=== PATIENT | male | born 1940 | race Caucasian/White ===

== ENCOUNTER 2021-11-01 01:05 | Emergency (ER) | payer MEDICARE, OTHER ==
[~2021-11-01] VITALS: Ht 182.9 cm; Wt 98.4 kg
[2021-11-01] MEDS ORDERED: IOPAMIDOL 370 MG/ML 100 ML INFUS..BTL INJ ONE (02:27)
[2021-11-01] MEDS ORDERED: SODIUM CHLORIDE 0.9% 1000ML 1,000 ML IV SCH (02:45)
[2021-11-01] MEDS ORDERED: SODIUM CHLORIDE 0.9% 1000ML 1,000 ML ONE (03:03)
== END 2021-11-01 05:50 | disposition other institution (70) ==
LOC: FSED 01:20
DX: R06.02 Shortness of breath (principal); I10 Essential (primary) hypertension; D64.9 Anemia, unspecified; I25.10 Atherosclerotic heart disease of native coronary artery without angina pectoris; E78.5 Hyperlipidemia, unspecified; R94.31 Abnormal electrocardiogram [ECG] [EKG]; Z20.822 Contact with and (suspected) exposure to COVID-19
CPT/HCPCS: 71260; 80048; 80076; 81003; 82553; 83880; 84484; 85025; 85379; 93005; 99284; J7030; Q9967; U0002

== ENCOUNTER 2024-12-15 20:46 | Emergency (ER) | payer MEDICARE ==
[~2024-12-15] VITALS: Ht 182.9 cm; Wt 87.5 kg
[2024-12-15 21:10] VITALS: PULSE 100; RESP 18; TEMP 97.5
[2024-12-15] MEDS: FAMOTIDINE 20 MG/2 ML VIAL IV STA (23:09)
[2024-12-15] MEDS: SODIUM CHLORIDE 0.9% 1000ML 1,000 ML IV SCH (23:09)
[2024-12-16 01:37] VITALS: BP 163/54; PULSE 64; RESP 18; TEMP 98; O2SAT 98
== END 2024-12-16 01:40 | disposition short-term general hospital (02) ==
LOC: FSED 20:57
DX: R13.10 Dysphagia, unspecified (principal); Q31.8 Other congenital malformations of larynx; C90.00 Multiple myeloma not having achieved remission; D64.9 Anemia, unspecified; I12.9 Hypertensive chronic kidney disease with stage 1 through stage 4 chronic kidney disease, or unspecified chronic kidney disease; N18.9 Chronic kidney disease, unspecified; I48.91 Unspecified atrial fibrillation; Z79.01 Long term (current) use of anticoagulants; E03.9 Hypothyroidism, unspecified; I25.10 Atherosclerotic heart disease of native coronary artery without angina pectoris; E78.5 Hyperlipidemia, unspecified; Z95.5 Presence of coronary angioplasty implant and graft
CPT/HCPCS: 70486; 71250; 80053; 85025; 96374; 99284; J1308; J7030